=== PATIENT | male | born 1950 | race Two or more races ===

== ENCOUNTER 2018-10-14 15:01 | Emergency (ER) | payer SELFPAY ==
[~2018-10-14] VITALS: Ht 157.5 cm; Wt 59.1 kg
[2018-10-14 15:07] VITALS: BP 152/92
[2018-10-14 15:28] LABS: GLUCOSE,POINT OF CARE 233 MG/DL (70-110)
== END 2018-10-14 16:19 | disposition left against medical advice (07) ==
LOC: EMS 15:04
DX: R51 Headache (principal); Z53.21 Procedure and treatment not carried out due to patient leaving prior to being seen by health care provider